=== PATIENT | female | born 1960 | race Caucasian/White ===

== ENCOUNTER 2025-09-01 09:57 | Outpatient (CLI) | payer MEDICAID, MEDICARE ==
[~2025-09-01 09:57] MED LIST: BUPR300T53 PO; DICL100T97 PO; LAMO150T2 PO; LISI1TAB49 PO; QUET200T PO; VENL150C5 PO
--- NOTE | 2025-09-01 21:59 | [facility] CONSULT REPORT ---
[facility] [facility] Procedure Note [facility] [facility] Procedure Note Consult [place] [facility] Note # Demographics Type of EEG Read: - Routine EEG - video Patient Location: Outpatient First Name: Dina Last Name: Joel Date of : 1960 Age: 65 Gender: Female Facility: [facility] Time of Initial Page (): 09/01/2025 12:52 First Contact with Site (): 09/01/2025 12:53 # EEG Interpretation Start Time of EEG Read (): 09/01/2025 10:19 Stop Time of EEG Read (): 09/01/2025 10:49 Duration: 0h 30m Technical Details: - The EEG electrodes were placed using the standard International 10-20 system of electrode placement. Video and an accessory EKG lead were used during the course of this study. - This study was recorded using the [employer] EEG software Indication: seizure like activity # Description Photic Stimulation: Performed Hyperventilation: NOT performed Phases Captured: - awake Symmetry: symmetric Posterior Dominant Rhythm: - present, attenuates on eye opening 9 Hz Predominant Frequencies: - non-posterior dominant alpha (8-12 Hz) - continuous (>90%) Superimposed Frequencies: - non-posterior dominant alpha (8-12 Hz) - continuous (>90%) Amplitude: normal Reactivity: yes Variability: yes Continuity: continuous EKG: NSR # Abnormalities Stimulation: - photic stimulation does NOT cause abnormalities Epileptiform Abnormalities: - NOT present Focal Slowing: no Seizure: - NOT present # Impression Impression: normal # Clinical Correlation Clinical Correlation: A normal EEG does not exclude nor support the diagnosis of epilepsy. # Logistics Telemedicine: remote EEG review: EEG reviewed remotely # Demographics First Name: Dina Last Name: Joel Facility: [facility] JEFF SHERMAN MD Sep 01, 2025 21:59
== END 2025-09-01 23:59 | disposition home or self-care (01) ==
LOC: RAD 09:57
PROVIDERS: ATTEND Family Medicine
DX: F20.2 Catatonic schizophrenia (principal)
CPT/HCPCS: 95819